=== PATIENT | female | born 1955 | race Caucasian/White ===

== ENCOUNTER 2017-11-05 18:06 | Emergency (ER) | payer BC, SELFPAY | END 2017-11-05 21:46 | disposition home or self-care (01) | PROVIDERS: Family Provider Nurse Practitioner Family; PCP Nurse Practitioner Family | DX: S00.461A Insect bite (nonvenomous) of right ear, initial encounter (principal); W57.XXXA Bitten or stung by nonvenomous insect and other nonvenomous arthropods, initial encounter | CPT/HCPCS: 99282 ==

== ENCOUNTER → 2018-07-20 09:00 | Outpatient (CLI) | payer BC, SELFPAY ==
[2018-07-20 10:21] LABS: Free T4, Direct Thyroxine 1.13 ng/dL (0.78-2.19)
[2018-07-20 10:34] LABS: Thyroid Stimulating Hormone 1.79 uIU/mL (0.47-4.68)
== END ==
PROVIDERS: Family Provider Internal Medicine Hematology & Oncology; PCP Nurse Practitioner Family; Visit Provider Nurse Practitioner Family
DX: E04.1 Nontoxic single thyroid nodule (principal)
CPT/HCPCS: 36415; 84439; 84443; 84481

== ENCOUNTER → 2018-11-16 10:41 | Outpatient (CLI) | payer BC, SELFPAY ==
[2018-11-16 13:12] LABS: Free T4, Direct Thyroxine 1.47 ng/dL (0.78-2.19)
[2018-11-16 13:25] LABS: Thyroid Stimulating Hormone 9.17 uIU/mL (0.47-4.68)
[2018-11-20 14:53] LABS: Parathyroid Hormone Int < 1 pg/mL (14-64)
== END ==
PROVIDERS: Family Provider Internal Medicine Hematology & Oncology; PCP Nurse Practitioner Family
DX: E04.1 Nontoxic single thyroid nodule (principal)
CPT/HCPCS: 36415; 83970; 84439; 84443; 84481

== ENCOUNTER 2019-09-14 12:44 | Emergency (ER) | payer BC, SELFPAY ==
[2019-09-14 12:51] VITALS: BP 107/60; PULSE 87; RESP 16; TEMP 37.6; O2SAT 100; BMI 23.6
--- NOTE | 2019-09-14 13:59 | DI.CT.S_ITS ---
PROCEDURE: CT SOFT TISSUE NECK W CON / INDICATIONS: severe pain, fever, difficulty swallowing, request per ENT TECHNIQUE: After the administration of intravenous contrast, 3.0 mm axial sections acquired from the sella to the aortic arch. Additional oblique axial 3.0 mm sections acquired through the pharynx. 3 mm thick coronal and sagittal reformats were generated. For radiation dose reduction, the following was used: automated exposure control. COMPARISON: None. FINDINGS: Image quality: There is mild motion artifact as well as streak artifact from patient's dental hardware limiting evaluation. Lymph nodes: There are mildly prominent bilateral cervical lymph nodes including level II nodes measuring up to 1 cm short axis. Findings are nonspecific but likely reactive. Vessels: Visualized vasculature appears patent. Neck spaces: There is mild mucosal thickening in the oropharynx and pyriform sinuses without a discrete mass. There is also mild enlargement of the tonsils bilaterally without a definite associated fluid collection, although evaluation is slightly limited by adjacent metallic streak artifact. There is also thickening of the uvula noted. No high-grade airway narrowing. The vocal cords, false vocal cords, epiglottis, vallecula, and tongue base all appear normal. Extramucosal spaces appear unremarkable. Glands: The parotid and submandibular glands appear normal. Thyroid gland is surgically absent. Miscellaneous: Visualized brain and orbits appear normal. Lung apices demonstrate mild dependent atelectasis. Superficial soft tissues appear normal. Bones: No suspicious bony lesions. Visualized sinuses and mastoids appear unremarkable. There is mild reversal of the cervical lordosis. Minimal anterolisthesis demonstrated at C3-C4. Moderate degenerative disc disease demonstrated in the mid and lower cervical spine. IMPRESSION: 1. Mild mucosal thickening in the oropharynx and pyriform sinuses as well as mild enlargement of the tonsils and uvula. The findings are likely infectious or inflammatory in etiology, without a discrete mass. No high-grade airway narrowing. No definite abscess identified. 2. Mildly prominent bilateral cervical lymph nodes are likely reactive. Dictated by: Hardy Hager M.D. on 09/14/2019 at 14:49 Approved by: Hardy Hager M.D. on 09/14/2019 at 14:55
[2019-09-14 14:00] VITALS: BP 132/78; PULSE 83; O2SAT 98
[2019-09-14] MEDS: SODIUM CHLORIDE 0.9% 1,000 ML 1000 ML IV (14:05)
[2019-09-14] MEDS: diphenhydrAMINE 50 MG/ML VIAL 25 MG IV (14:10)
[2019-09-14] MEDS: methylPREDNISolone 125 MG/2 ML VIAL IV (14:10)
--- NOTE | 2019-09-14 14:16 | ED.FEVER ---
HPI - Fever General Chief Complaint: Fever Stated Complaint: fever 102/104, headache, swollen glands Time Seen by Provider: 09/14/19 12:46 Source: patient Mode of arrival: Ambulatory Limitations: no limitations History of Present Illness HPI Narrative: 63-year-old female nonsmoker with history of CLL diagnosed in 2017 [address] at [facility] presents with a chief complaint of fever as high as 104F and a severe sore throat for the past few days. She denies any runny nose cough or shortness of breath. She has had no chest pain, nausea or vomiting. She denies any abdominal pain dysuria, frequency or urgency. Patient has had tender swollen glands and has difficulty swallowing. She was seen as an outpatient by her primary care provider and had negative swabs for flu and strep as well as a negative mono spot. She did have abnormal findings on her CBC including a reported WBC in the 2s. She does report feeling better today and has been on Keflex since yesterday. She was sent here by her primary care provider for further evaluation. She has spoken with her ear nose and throat physician from [place] whom requested she be sent here for advanced imaging of her throat and neck given her history of recurrent sialoadenitis and possible infection MD complaint: fever and weakness Onset (ago): day(s) Maximum Temperature: 104 F Temperature Source: oral Associated symptoms: chills, myalgias and sore throat Relieving factors: nothing Treatments prior to arrival fever: antibiotics Related Data Home Medications Medication Instructions Recorded Confirmed ascorbic acid (vitamin C) 500 mg PO QDAY #0 tab 05/05/16 cholecalciferol (vitamin D3) 1,000 unit PO Q DAY #0 05/05/16 [Vitamin D3] multivitamin [Multiple Vitamins] 1 tab PO QDAY #0 tab 05/05/16 calcium carbonate 1 tab PO Q DAY #0 05/26/16 Previous Rx's Medication Instructions Recorded epinephrine 0.3 mg IJ SEE INSTRUCTIONS #1 kit 03/31/16 Allergies Allergy/AdvReac Type Severity Reaction Status Date / Time iodine [IODINE] Allergy Intermediate hives Unverified 10/25/17 12:38 shellfish derived Allergy Intermediate swelling Unverified 10/25/17 12:38 [SHELLFISH DERIVED] venom-honey bee Allergy Intermediate swelling Unverified 10/25/17 12:38 [BEE VENOM (HONEY BEE)] Penicillins AdvReac Verified 09/14/19 13:01 Review of Systems Constitutional Constitutional: Reports chills, Reports fatigue, Reports fever(s), Denies frequent falls, Denies lethargy and Denies weakness Eyes Eyes: Denies change in vision, Denies eye discharge, Denies irritation and Denies loss of vision ENT Ears, Nose, Mouth, and Throat: Denies change in voice, Denies dizziness, Reports neck pain, Reports sore throat and Reports throat swelling Cardiovascular Cardiovascular: Denies chest pain, Denies irregular heart rhythm, Denies lightheadedness, Denies palpitations, Denies dyspnea, Denies dyspnea on exertion and Denies orthopnea Respiratory Respiratory: Denies cough, Denies dyspnea, Denies dyspnea on exertion and Denies wheezing Gastrointestinal Gastrointestinal: Denies abdominal pain, Denies change in bowel habits, Denies diarrhea, Denies nausea and Denies vomiting Genitourinary Genitourinary: Denies hematuria, Denies flank pain, Denies urinary incontinence and Denies urinary urgency Musculoskeletal Musculoskeletal: Denies back pain, Denies muscle weakness, Reports neck pain, Denies numbness and Denies tingling Integumentary/Breasts Skin/Breast: Denies pruritus, Denies erythema, Denies rash and Denies wounds Neurologic Neurologic: Denies behavioral changes, Denies confusion, Denies dizziness, Denies frequent falls, Denies loss of vision, Denies numbness, Denies tingling and Denies weakness Psychiatric Psychiatric: Denies anxiety, Denies behavioral changes, Denies confusion, Denies depression, Denies homicidal ideation and Denies suicidal ideation Endocrine Endocrine: Reports fatigue, Denies flushing and Denies palpitations Hematologic/Lymphatic Hematologic/Lymphatic: Denies easy bruising Allergic/Immunologic Allergic/Immunologic: Denies urticaria, Reports throat swelling and Denies wheezing Patient History Surgical History History of tonsillectomy Status post rotator cuff repair Family History Father Heart disease Social History Smoking Status: Never smoker Smoking Status: Never smoker Exam Narrative Exam Narrative: GENERAL: [63] year old patient appears stated age. Well-nourished, well-developed patient, in mild distress. HEAD: Atraumatic. Normocephalic. EYES: Pupils equal round and reactive. Extraocular motions intact. No scleral icterus. No injection or drainage. ENT: Nose without bleeding, purulent drainage. Posterior pharyngeal erythema. Airway patent. NECK: Trachea midline. Tender anterior lymphadenopathy CARDIOVASCULAR: Regular rate and rhythm without murmurs, gallops, or rubs. RESPIRATORY: Clear to auscultation. Breath sounds equal bilaterally. No wheezes, rales, or rhonchi. GASTROINTESTINAL: Abdomen soft, non-tender, nondistended. EXTREMITIES: No edema or joint tenderness. BACK: Nontender without deformity or crepitance. No flank tenderness. NEURO: AOx3. SKIN: No rash or erythema of visible areas Initial Vital Signs Initial Vital Signs: Vital Signs Temperature 99.6 F 09/14/19 12:51 Pulse Rate 87 09/14/19 12:51 Respiratory Rate 16 09/14/19 12:51 Blood Pressure 107/60 09/14/19 12:51 Pulse Oximetry 100 09/14/19 12:51 Course Course Course Narrative: Patient with high fever, sore throat an abnormally low white count sent by her ENT and primary care provider for evaluation. CT was soft tissue of neck demonstrates no abscess or significantly abnormal findings. Her labs though abnormal are improved. Patient has been given IV fluids and is feeling much better. I have contacted her primary care provider and we sure the opinion that she is safe for discharge and she will follow-up closely with her during the 1st part of the week. Patient given return precautions and encouraged to continue medications as planned while we await culture results Also called ENT at [facility]. No significant additions. DIscussion with patient regarding keeping on Keflex considering she feels a bit better, and waiting for cultures, or switching to something with broader coverage Orders Ordered: ED Orders 09/14/19 13:59 CT soft tissue neck w con Stat 09/14/19 14:20 Blood Culture Stat 09/14/19 14:28 Complete Blood Count AUTO DIFF Stat Comprehensive Metabolic Panel Stat Lactate (Lactic Acid) Stat Lipase Stat Partial Thromboplastin Time Stat Pathologist Review (for CBC) Stat Procalcitonin Stat Prothrombin Time INR Stat Discontinued Medications Acetaminophen (Tylenol) 975 mg PO NOW ONE Stop: 09/14/19 15:25 Last Admin: 09/14/19 15:47 Dose: 975 mg Documented by: SMICHEAU Diphenhydramine HCl (Benadryl) 25 mg IV NOW ONE Stop: 09/14/19 14:00 Last Admin: 09/14/19 14:10 Dose: 25 mg Documented by: ADRIENNE Sodium Chloride (Normal Saline 0.9%) 1,000 mls @ 1,000 mls/hr IV BOLUS ONE Stop: 09/14/19 14:03 Last Infusion: 09/14/19 15:23 Dose: 0 mls/hr Documented by: Admin: 09/14/19 14:05 Dose: 1,000 mls/hr Documented by: ADRIENNE Methylprednisolone (Solu-Medrol 125 Mg Vial) 125 mg IV NOW ONE Stop: 09/14/19 14:00 Last Admin: 09/14/19 14:10 Dose: 125 mg Documented by: ADRIENNE Vital Signs Vital signs: Vital Signs - 8 hr 09/14/19 12:51 09/14/19 14:00 09/14/19 15:16 Temperature 99.6 F 103.2 F H Pulse Rate 87 83 97 H Respiratory Rate 16 18 Blood Pressure 107/60 Blood Pressure [Right Arm] 132/78 131/60 Pulse Oximetry 100 98 96 09/14/19 16:18 09/14/19 17:00 09/14/19 18:00 Temperature 99.9 F H Pulse Rate 85 86 74 Respiratory Rate 16 Blood Pressure Blood Pressure [Right Arm] 124/60 117/55 L 110/63 Pulse Oximetry 95 93 100 MDM - Fever Lab Data Result diagrams: 09/14/19 14:28 09/14/19 14:28 Labs: Lab Results 09/14/19 09/14/19 09/14/19 Range/Units 14:28 14:28 14:28 WBC 3.5 L (4.5-11.0) X10^3/uL RBC 4.04 (4.0-5.2) X10^6/uL Hgb 12.7 (12.0-16.0) g/dL Hct 36.0 (36-46) % MCV 89.2 (80-100) fL MCH 31.5 (26-34) PG MCHC 35.3 (30-36) % RDW 13.7 (11.6-14.8) % Plt Count 108 L (150-400) X10^3/uL Neut % (Auto) Not Reportable Lymph % (Auto) Not Reportable [place] % (Auto) Not Reportable Eos % (Auto) Not Reportable Baso % (Auto) Not Reportable Lymph # (Auto) Not Reportable [place] # (Auto) Not Reportable Baso # (Auto) Not Reportable Total Counted 100 Seg Neutrophils % 2.0 L (38-70) % Lymphocytes % (Manual) 96.0 H (25-45) % Monocytes % (Manual) 2.0 (2-11) % Neutrophils # (Manual) 70 L (7134-4924) /uL RBC Morphology Normal morphology PT 29.1 H (10.1-12.7) SECONDS INR 2.5 H (0.9-1.3) APTT 43 H (26.4-36.2) SECONDS Sodium (137-145) mmol/L Potassium (3.4-5.1) mmol/L Chloride (98-107) mmol/L Carbon Dioxide (22-32) mmol/L BUN (7-17) mg/dL Creatinine (0.52-1.04) mg/dL Estimated GFR (>60) mL/min BUN/Creatinine Ratio (6-22) Glucose (80-110) mg/dL Lactate (0.7-2.1) mmol/L Calcium (8.4-10.2) mg/dL Total Bilirubin (0.2-1.3) mg/dL AST (14-36) IU/L ALT (<35) IU/L Alkaline Phosphatase (38-126) U/L Total Protein (6.3-8.2) g/dL Albumin (3.5-5.0) g/dL Globulin (1.7-4.1) g/dL Albumin/Globulin Ratio (1.0-2.8) Lipase (23-300) U/L Procalcitonin < 0.05 (<0.5) ng/mL 09/14/19 09/14/19 Range/Units 14:28 14:28 WBC (4.5-11.0) X10^3/uL RBC (4.0-5.2) X10^6/uL Hgb (12.0-16.0) g/dL Hct (36-46) % MCV (80-100) fL MCH (26-34) PG MCHC (30-36) % RDW (11.6-14.8) % Plt Count (150-400) X10^3/uL Neut % (Auto) Lymph % (Auto) [place] % (Auto) Eos % (Auto) Baso % (Auto) Lymph # (Auto) [place] # (Auto) Baso # (Auto) Total Counted Seg Neutrophils % (38-70) % Lymphocytes % (Manual) (25-45) % Monocytes % (Manual) (2-11) % Neutrophils # (Manual) (7400-3212) /uL RBC Morphology PT (10.1-12.7) SECONDS INR (0.9-1.3) APTT (26.4-36.2) SECONDS Sodium 137 (137-145) mmol/L Potassium 3.7 (3.4-5.1) mmol/L Chloride 100 (98-107) mmol/L Carbon Dioxide 28 (22-32) mmol/L BUN 12 (7-17) mg/dL Creatinine 0.60 (0.52-1.04) mg/dL Estimated GFR > 60.0 (>60) mL/min BUN/Creatinine Ratio 20.0 (6-22) Glucose 96 (80-110) mg/dL Lactate 1.1 (0.7-2.1) mmol/L Calcium 8.3 L (8.4-10.2) mg/dL Total Bilirubin 1.0 (0.2-1.3) mg/dL AST 19 (14-36) IU/L ALT 12 (<35) IU/L Alkaline Phosphatase 37 L (38-126) U/L Total Protein 7.4 (6.3-8.2) g/dL Albumin 4.3 (3.5-5.0) g/dL Globulin 3.1 (1.7-4.1) g/dL Albumin/Globulin Ratio 1.4 (1.0-2.8) Lipase 60 (23-300) U/L Procalcitonin (<0.5) ng/mL Urine Dip Bedside Urine Glucose Negative Bedside Urine Bilirubin - Negative Bedside Urine Ketone - Negative Urine Specific [place] 1.015 Bedside Urine Occult Blood - Negative Bedside Urine pH 6.0 Bedside Urine Protein +/- 15 Bedside Urine Urobilinogen - Negative Bedside Urine Nitrite - Negative Bedside Urine Leukocytes - Negative Esterase Imaging Data CT Soft Tissue: Radiologist's Impression: [address] [place] [id number] Scan Report Signed Patient: Alesia Alejo CMR#: [id number] : 6Acct:[id number] Age/Sex: 63 / FDate of Service: 09/14/19 Loc: ED Accession Number: [id number] Procedure: CT soft tissue neck w con Ordering Provider: Colby James D.O. PROCEDURE: CT SOFT TISSUE NECK W CON / INDICATIONS: severe pain, fever, difficulty swallowing, request per ENT TECHNIQUE: After the administration of intravenous contrast, 3.0 mm axial sections acquired from the sella to the aortic arch. Additional oblique axial 3.0 mm sections acquired through the pharynx. 3 mm thick coronal and sagittal reformats were generated. For radiation dose reduction, the following was used: automated exposure control. COMPARISON: None. FINDINGS: Image quality: There is mild motion artifact as well as streak artifact from patient's dental hardware limiting evaluation. Lymph nodes: There are mildly prominent bilateral cervical lymph nodes including level II nodes measuring up to 1 cm short axis. Findings are nonspecific but likely reactive. Vessels: Visualized vasculature appears patent. Neck spaces: There is mild mucosal thickening in the oropharynx and pyriform sinuses without a discrete mass. There is also mild enlargement of the tonsils bilaterally without a definite associated fluid collection, although evaluation is slightly limited by adjacent metallic streak artifact. There is also thickening of the uvula noted. No high-grade airway narrowing. The vocal cords, false vocal cords, epiglottis, vallecula, and tongue base all appear normal. Extramucosal spaces appear unremarkable. Glands: The parotid and submandibular glands appear normal. Thyroid gland is surgically absent. Miscellaneous: Visualized brain and orbits appear normal. Lung apices demonstrate mild dependent atelectasis. Superficial soft tissues appear normal. Bones: No suspicious bony lesions. Visualized sinuses and mastoids appear unremarkable. There is mild reversal of the cervical lordosis. Minimal anterolisthesis demonstrated at C3-C4. Moderate degenerative disc disease demonstrated in the mid and lower cervical spine. IMPRESSION: 1. Mild mucosal thickening in the oropharynx and pyriform sinuses as well as mild enlargement of the tonsils and uvula. The findings are likely infectious or inflammatory in etiology, without a discrete mass. No high-grade airway narrowing. No definite abscess identified. 2. Mildly prominent bilateral cervical lymph nodes are likely reactive. Dictated by: Hardy Hager M.D. on 09/14/2019 at 14:49 Approved by: Hardy Hager M.D. on 09/14/2019 at 14:55 Discharge Plan Departure Patient Disposition: Home Clinical Impression: Pharyngitis Qualifiers: Pharyngitis/tonsillitis etiology: unspecified etiology Qualified Code(s): J02.9 - Acute pharyngitis, unspecified Discharge Date/Time: 09/14/19 18:27 Instructions: DI for Pharyngitis/Tonsillopharyngitis -- Adult, DI for Fever (Symptom) -- Adult Activity Restrictions/Additional Instructions: *You have been diagnosed with [pharyngitis with fever] *What to do: * continue to take medications as directed *Follow up with your primary care provider in 2-3 days, call for an appointment. Let them know you were seen in the Emergency Department and that we ask that you be seen in follow up *Return to ER if you should have any new, worsening or concerning symptoms Prescriptions: No Action epinephrine 0.3 MG/0.3 ML auto-injector 0.3 mg IJ SEE INSTRUCTIONS Qty: 1 RF: 1 multivitamin [Multiple Vitamins] 1 EACH tablet 1 tab PO QDAY Qty: 0 RF: 0 ascorbic acid (vitamin C) 500 MG tablet 500 mg PO QDAY Qty: 0 RF: 0 cholecalciferol (vitamin D3) [Vitamin D3] 1,000 UNIT tablet,chewable 1,000 unit PO Q DAY Qty: 0 RF: 0 calcium carbonate 260 MG tablet 1 tab PO Q DAY Qty: 0 RF: 0 Referrals: Erin Pastor ARNP [Primary Care Provider] -
[2019-09-14 15:01] LABS: INR 2.5 (0.9-1.3); Prothrombin Time 29.1 SECONDS (10.1-12.7)
[2019-09-14 15:04] LABS: PTT Partial Thromboplastin Tim 43 SECONDS (26.4-36.2)
[2019-09-14 15:05] LABS: Alanine Aminotransferase 12 IU/L (<35); Albumin 4.3 g/dL (3.5-5.0); Albumin Globulin Ratio 1.4 (1.0-2.8); Alkaline Phosphatase 37 U/L (38-126); Aspartate Aminotransferase 19 IU/L (14-36); Blood Urea Nitrogen 12 mg/dL (7-17); Calcium 8.3 mg/dL (8.4-10.2); Carbon Dioxide 28 mmol/L (22-32); Chloride 100 mmol/L (98-107); Estimated Glomerular Filt Rate > 60.0 mL/min (>60); Globulin 3.1 g/dL (1.7-4.1); Glucose 96 mg/dL (80-110); HEMOLYSIS < 15 (0-50); Lipase 60 U/L (23-300); Potassium 3.7 mmol/L (3.4-5.1); Sodium 137 mmol/L (137-145); Total Protein 7.4 g/dL (6.3-8.2)
[2019-09-14 15:06] LABS: Lactate (Lactic Acid) 1.1 mmol/L (0.7-2.1)
[2019-09-14 15:10] LABS: Hemoglobin 12.7 g/dL (12.0-16.0); Mean Corpuscular HGB Conc 35.3 % (30-36); Mean Corpuscular Hemoglobin 31.5 PG (26-34); Mean Corpuscular Volume 89.2 fL (80-100); Platelet Count 108 X10^3/uL (150-400); Red Blood Cell Count 4.04 X10^6/uL (4.0-5.2); Red Cell Distribution Width 13.7 % (11.6-14.8); White Blood Cell Count 3.5 X10^3/uL (4.5-11.0)
[2019-09-14 15:16] VITALS: BP 131/60; PULSE 97; RESP 18; TEMP 39.6; O2SAT 96
[2019-09-14 15:16] LABS: Add Manual Diff / Slide Review YES
[2019-09-14] MEDS: ACETAMINOPHEN 325 MG TABLET 975 MG PO (15:47)
[2019-09-14 15:54] LABS: Neutrophils Absolute Manual 70 /uL (3000-5900); RBC Morphology Normal Morphology; Total Cells Counted 100
[2019-09-14 16:03] LABS: Procalcitonin < 0.05 ng/mL (<0.5)
[2019-09-14 16:18] VITALS: BP 124/60; PULSE 85; O2SAT 95
[2019-09-14 17:00] VITALS: BP 117/55; PULSE 86; O2SAT 93
[2019-09-14 18:00] VITALS: BP 110/63; PULSE 74; RESP 16; TEMP 37.7; O2SAT 100
== END 2019-09-14 18:27 | disposition home or self-care (01) ==
PROVIDERS: Emergency Provider Emergency Medicine; Family Provider Internal Medicine Hematology & Oncology; PCP Nurse Practitioner Family
DX: J02.9 Acute pharyngitis, unspecified (principal); R50.9 Fever, unspecified
CPT/HCPCS: 70491; 80053; 81003; 83605; 83690; 84145; 85025; 85610; 85730; 87040; 96361; 96374; 96375; 99284; J1200; J2930; Q9967

== ENCOUNTER → 2020-07-22 13:22 | Outpatient (CLI) | payer BC, SELFPAY | PROVIDERS: Family Provider Internal Medicine Hematology & Oncology; PCP Family Medicine; Referring Provider Family Medicine; Visit Provider Family Medicine | DX: Z78.0 Asymptomatic menopausal state (principal); E07.9 Disorder of thyroid, unspecified | CPT/HCPCS: 77080 ==

== ENCOUNTER → 2020-10-15 08:51 | Outpatient (CLI) | payer MEDICARE, OTHER, SELFPAY ==
[2020-10-15 10:01] LABS: Add Manual Diff / Slide Review YES; Alanine Aminotransferase 13 IU/L (<35); Albumin 4.5 g/dL (3.5-5.0); Alkaline Phosphatase 38 U/L (38-126); Aspartate Aminotransferase 22 IU/L (14-36); Bilirubin Total 0.5 mg/dL (0.2-1.3); Blood Urea Nitrogen 18 mg/dL (7-17); Calcium 9.2 mg/dL (8.4-10.2); Carbon Dioxide 32 mmol/L (22-32); Chloride 99 mmol/L (98-107); Estimated Glomerular Filt Rate > 60.0 mL/min (>60); Globulin 2.3 g/dL (1.7-4.1); Glucose 79 mg/dL (80-110); HEMOLYSIS < 15 (0-50); Hematocrit 38.6 % (36-46); Hemoglobin 13.6 g/dL (12.0-16.0); Lactate Dehydrogenase 536 U/L (313-618); Mean Corpuscular HGB Conc 35.2 % (30-36); Mean Corpuscular Hemoglobin 30.6 PG (26-34); Platelet Count 100 X10^3/uL (150-400); Potassium 3.8 mmol/L (3.4-5.1); Red Blood Cell Count 4.43 X10^6/uL (4.0-5.2); Red Cell Distribution Width 13.4 % (11.6-14.8); Sodium 138 mmol/L (137-145); Total Protein 6.8 g/dL (6.3-8.2); White Blood Cell Count 10.7 X10^3/uL (4.5-11.0)
[2020-10-15 10:23] LABS: Neutrophils Absolute Manual 3852 /uL (3000-5900); RBC Morphology Normal Morphology; Total Cells Counted 100
== END ==
PROVIDERS: Family Provider Internal Medicine Hematology & Oncology; Referring Provider Internal Medicine Hematology & Oncology; Visit Provider Internal Medicine Hematology & Oncology
DX: C91.10 Chronic lymphocytic leukemia of B-cell type not having achieved remission (principal)
CPT/HCPCS: 36415; 80053; 83615; 85007; 85025

== ENCOUNTER → 2020-11-20 12:49 | Outpatient (CLI) | payer MEDICARE, OTHER, SELFPAY ==
[2020-11-20 14:07] LABS: Alanine Aminotransferase 13 IU/L (<35); Albumin 4.1 g/dL (3.5-5.0); Albumin Globulin Ratio 1.6 (1.0-2.8); Alkaline Phosphatase 47 U/L (38-126); Aspartate Aminotransferase 23 IU/L (14-36); BUN Creatinine Ratio 26.4 (6-22); Bilirubin Total 0.4 mg/dL (0.2-1.3); Blood Urea Nitrogen 19 mg/dL (7-17); Calcium 9.1 mg/dL (8.4-10.2); Carbon Dioxide 31 mmol/L (22-32); Chloride 99 mmol/L (98-107); Estimated Glomerular Filt Rate > 60.0 mL/min (>60); Globulin 2.5 g/dL (1.7-4.1); Glucose 85 mg/dL (80-110); HEMOLYSIS < 15 (0-50); Potassium 4.2 mmol/L (3.4-5.1); Sodium 138 mmol/L (137-145); Total Protein 6.6 g/dL (6.3-8.2)
[2020-11-20 14:22] LABS: Free T4, Direct Thyroxine 1.86 ng/dL (0.78-2.19)
[2020-11-20 14:36] LABS: Thyroid Stimulating Hormone 0.396 uIU/mL (0.47-4.68)
[2020-11-21 19:28] LABS: Anti Thyroglobulin Antibody <1.0 IU/mL (0.0-0.9)
[2020-11-25 10:35] LABS: Thyroglobulin Level <2.0 ng/mL (.)
== END ==
PROVIDERS: Family Provider Internal Medicine Hematology & Oncology; PCP Family Medicine; Referring Provider Internal Medicine Endocrinology, Diabetes & Metabolism; Visit Provider Internal Medicine Endocrinology, Diabetes & Metabolism
DX: C73 Malignant neoplasm of thyroid gland (principal); E89.0 Postprocedural hypothyroidism; E89.2 Postprocedural hypoparathyroidism
CPT/HCPCS: 36415; 80053; 84432; 84439; 84443; 86800

== ENCOUNTER → 2020-11-26 13:22 | Outpatient (CLI) | payer MEDICARE, OTHER, SELFPAY ==
[2020-11-26 20:56] LABS: Add Manual Diff / Slide Review YES; Hematocrit 38.3 % (36-46); Hemoglobin 13.1 g/dL (12.0-16.0); Mean Corpuscular HGB Conc 34.3 % (30-36); Mean Corpuscular Hemoglobin 30.1 PG (26-34); Mean Corpuscular Volume 87.7 fL (80-100); Platelet Count 127 X10^3/uL (150-400); Red Blood Cell Count 4.36 X10^6/uL (4.0-5.2); Red Cell Distribution Width 13.4 % (11.6-14.8)
[2020-11-26 21:00] LABS: Neutrophils Absolute Manual 0 /uL (3000-5900); Total Cells Counted 100
[2020-11-26 21:03] LABS: Influenza A - CEPHEID Flu A NEGATIVE (NEGATIVE); Influenza B - CEPHEID Flu B NEGATIVE (NEGATIVE)
[2020-11-26 21:04] LABS: Platelet Estimate Decr; RBC Morphology Normal Morphology
[2020-11-26 21:22] LABS: COVID19 - ORCAS (NP or Nasal) Negative (Negative)
== END ==
PROVIDERS: Family Provider Internal Medicine Hematology & Oncology; PCP Family Medicine; Visit Provider Family Medicine
DX: R50.9 Fever, unspecified (principal); Z20.822 Contact with and (suspected) exposure to COVID-19
CPT/HCPCS: 85007; 85025; 87086; 87502; U0003

== ENCOUNTER 2020-12-15 18:39 | Emergency (ER) | payer MEDICARE, OTHER, SELFPAY ==
[2020-12-15 18:40] VITALS: BP 128/64; PULSE 102; RESP 18; TEMP 38.4; O2SAT 99; BMI 24.9
--- NOTE | 2020-12-15 18:55 | DI.RAD.S_ITS ---
PROCEDURE: XR CHEST 1V INDICATIONS: fall, trauma, preop TECHNIQUE: One view of the chest was acquired. COMPARISON: None. FINDINGS: Surgical changes and devices: None. Lungs and pleura: There is a small left pleural effusion. Associated linear opacities in the left lung base likely represent compressive atelectasis. No evidence of pneumothorax. Mediastinum: Mediastinal contours appear normal. Heart size is normal. Bones and chest wall: No suspicious bony lesions. No displaced fractures identified. Overlying soft tissues appear unremarkable. IMPRESSION: 1. Small left pleural effusion with likely associated compressive atelectasis in the left lung base. Dictated by: Hardy Hager M.D. on 12/15/2020 at 19:28 Approved by: Hardy Hager M.D. on 12/15/2020 at 19:29
--- NOTE | 2020-12-15 19:28 | ED_ITS ---
HPI - Sepsis General Chief Complaint: Fever Mode of arrival: Ambulatory Source: patient Limitations: no limitations Evaluation Sepsis Screen: Possible Sepsis Risk Sepsis Infection Criteria Present: Suspected New Infection Associated Symptoms: fever Narrative: 65-year-old female nonsmoker with history of CLL presents at the request of her primary care provider for evaluation. She states she has had a low-grade temp at home and has increasing pain and swelling in her left groin. She recently had an extended hospitalization at [facility] ([place], [place]) for neutropenic fever and was just discharged a few days ago. She is not on antibiotics at home and had been doing well until she started having increasing size swelling in her left groin. She states that she had been febrile upon discharge and also had painful swollen left inguinal lymph nodes for the duration of her visit at [facility] ([place], [place]) and also upon discharge. She denies other symptoms such as dizziness, weakness or lightheadedness. She has no runny nose, sore throat or cough. Her hospitalization was 15 days long and involved very thorough evaluations by Hematology, Oncology and Infectious Disease. In the end it was thought that her neutropenia was likely due to a medication reaction with turbinate find that she had been using for toenail fungus which had actually happened to her once before a few years ago. Her absolute neutrophil count was quite low and her evaluation was extensive including multiple CT scans with IV contrast, viral panels, stay bone marrow biopsies, transthoracic echocardiogram, toxoplasma, ultrasounds etc.. She had no definitive diagnosis but had been on antibiotics for possible cellulitis. She did receive G-CSF Review of Systems Constitutional Constitutional: Denies chills, Denies fatigue, Reports fever(s), Denies frequent falls, Denies lethargy and Denies weakness Eyes Eyes: Denies change in vision, Denies eye discharge, Denies irritation and Denies loss of vision ENT Ears, Nose, Mouth, and Throat: Denies change in voice, Denies dizziness, Denies neck pain, Denies sore throat and Denies throat swelling Cardiovascular Cardiovascular: Denies chest pain, Denies irregular heart rhythm, Denies lightheadedness, Denies palpitations, Denies dyspnea, Denies dyspnea on exertion and Denies orthopnea Respiratory Respiratory: Denies cough, Denies dyspnea, Denies dyspnea on exertion and Denies wheezing Gastrointestinal Gastrointestinal: Denies abdominal pain, Denies change in bowel habits, Denies diarrhea, Denies nausea and Denies vomiting Genitourinary Comments: groin pain Musculoskeletal Musculoskeletal: Denies neck pain and Denies numbness Integumentary/Breasts Skin/Breast: Denies pruritus, Denies erythema, Denies rash and Denies wounds Neurologic Neurologic: Denies behavioral changes, Denies confusion, Denies dizziness, Denies frequent falls, Denies loss of vision, Denies numbness and Denies weakness Psychiatric Psychiatric: Denies anxiety, Denies behavioral changes, Denies confusion, Denies depression, Denies homicidal ideation and Denies suicidal ideation Endocrine Endocrine: Denies fatigue, Denies flushing and Denies palpitations Hematologic/Lymphatic Hematologic/Lymphatic: Denies easy bruising Allergic/Immunologic Allergic/Immunologic: Denies urticaria, Denies throat swelling and Denies wheezing Patient History Medical History Acute embolism and thrombosis of left internal jugular vein 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 Calcinosis 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, auricular septal (~09/1965) Family history of malignant neoplasm of digestive organs Family history of malignant neoplasm of ovary Fever Hallux valgus (acquired) Hepatitis C (~1997) History of basal cell carcinoma Hypocalcemia Hypothyroidism (~2018) Malignant neoplasm of thyroid gland Measles Mumps Onychomycosis Osteoarthritis Other specified abnormal findings of blood chemistry Personal history of other infectious and parasitic diseases Polyp of colon Postprocedural hypothyroidism Retinal detachment Rheumatoid arthritis Rubella Sepsis due to Streptococcus, group B Thrombocytopenia, unspecified Thyroid nodule Surgical History Anesthesia H/O detached retina repair (~2003) History of eye surgery (~10/2020) History of heart surgery (~09/1965) History of thyroidectomy (~10/2018) History of tonsillectomy Status post rotator cuff repair (~07/2015) Family History Father Heart disease Cancer Stroke Mother Cancer Sister Breast cancer Grandmother Cancer Grandfather Stroke Grandfather Parkinson's disease Grandmother Cancer Social History Smoking Status: Never smoker alcohol intake: current (1 drink for dinner ) substance use type: marijuana (1 joint per week for sleep ) Smoking Status: Never smoker Substance Use Type: does not use Exam Narrative Exam Narrative: GENERAL: [65] year old patient appears stated age. Well- nourished, well-developed patient, in mild distress. HEAD: Atraumatic. Normocephalic. EYES: Pupils equal round and reactive. Extraocular motions intact. No scleral icterus. No injection or drainage. ENT: Nose without bleeding, purulent drainage. Throat without erythema, tonsill ar hypertrophy or exudate. Airway patent. NECK: Trachea midline. Non tender CARDIOVASCULAR: Regular rate and rhythm without murmurs, gallops, or rubs. RESPIRATORY: Clear to auscultation. Breath sounds equal bilaterally. No wheezes, rales, or rhonchi. GASTROINTESTINAL: Abdomen soft, non-tender, nondistended. EXTREMITIES: Tender nodes in left groin. No erythema, induration, fluctuance, or lymphangitis. No edema or joint tenderness. BACK: Nontender without deformity or crepitance. No flank tenderness. NEURO: AOx3. SKIN: No rash or erythema of visible areas Initial Vital Signs Initial Vital Signs: Vital Signs Temperature 101.2 F H 12/15/20 18:40 Pulse Rate 102 H 12/15/20 18:40 Respiratory Rate 18 12/15/20 18:40 Blood Pressure 128/64 12/15/20 18:40 Pulse Oximetry 99 12/15/20 18:40 Course Orders Ordered: ED Orders 12/15/20 18:55 XR chest 1V Stat 12/15/20 19:27 Complete Blood Count AUTO DIFF Stat Comprehensive Metabolic Panel Stat Lactate (Lactic Acid) Stat Pathologist Review (for CBC) Stat Procalcitonin Stat 12/15/20 19:45 D Dimer Stat 12/15/20 19:56 Blood Culture Stat 12/15/20 20:38 US periph venous low extrem lt Stat Discontinued Medications Sodium Chloride (Normal Saline 0.9%) 1,000 mls @ 125 mls/hr IV CONT TONY Last Admin: 12/15/20 21:54 Dose: Not Given Documented by: ENZO Ketorolac Tromethamine (Ketorolac 30 Mg/Ml Vial) 15 mg IV NOW ONE Stop: 12/15/20 20:06 Last Admin: 12/15/20 20:48 Dose: 15 mg Documented by: ENZO Reevaluation(s) Reevaluation #1: Patient felt near complete resolution of symptoms after above- stated therapies. Consultations Consultation #1: Upon receipt of diagnostics, and discharge summary I placed a call to Infectious Disease at [facility] ([place], [place]). We had a lengthy discussion regarding the prior hospitalization, as well as the patient's history and physical for this visit. Patient is clearly no longer neutropenic and still has no obvious source of her fever. Given the multiple extended recent evaluations the recommendation, especially given how well the patient feels is to go home, no new antibiotics, await pending cultures and follow-up as previously planned. Vital Signs Vital signs: Vital Signs - 8 hr 12/15/20 18:40 12/15/20 19:30 12/15/20 20:00 Temperature 101.2 F H Pulse Rate 102 H 99 H 89 Respiratory Rate 18 Blood Pressure 128/64 120/61 Pulse Oximetry 99 96 96 12/15/20 20:30 12/16/20 00:08 Temperature Pulse Rate 89 84 Respiratory Rate Blood Pressure 116/63 Pulse Oximetry 97 98 MDM - Sepsis Lab Data Result diagrams: 12/15/20 19:27 12/15/20 19:27 Labs: Lab Results 12/15/20 12/15/20 12/15/20 Range/Units 19:27 19:27 19:27 WBC 18.2 H (4.5-11.0) X10^3/uL RBC 3.37 L (4.0-5.2) X10^6/uL Hgb 10.2 L (12.0-16.0) g/dL Hct 29.0 L (36-46) % MCV 86.0 (80-100) fL MCH 30.4 (26-34) PG MCHC 35.3 (30-36) % RDW 13.0 (11.6-14.8) % Plt Count 385 (150-400) X10^3/uL Neut % (Auto) Not Reportable Lymph % (Auto) Not Reportable [place] % (Auto) Not Reportable Eos % (Auto) Not Reportable Baso % (Auto) Not Reportable Lymph # (Auto) Not Reportable [place] # (Auto) Not Reportable Baso # (Auto) Not Reportable Total Counted 100 Seg Neutrophils % 22.0 L (38-70) % Band Neutrophils % 8.0 H (3-7) % Lymphocytes % (Manual) 40.0 (25-45) % Atypical Lymphs % 21.0 H ( - 0) % Monocytes % (Manual) 8.0 (2-11) % Metamyelocytes % 1.0 H (-0) % Neutrophils # (Manual) 5460 (4946-8523) /uL WBC Morphology Comment Note RBC Morphology Normal morphology D-Dimer (<230) ng/mL Sodium (137-145) mmol/L Potassium (3.4-5.1) mmol/L Chloride (98-107) mmol/L Carbon Dioxide (22-32) mmol/L BUN (7-17) mg/dL Creatinine (0.52-1.04) mg/dL Estimated GFR (>60) mL/min BUN/Creatinine Ratio (6-22) Glucose (80-110) mg/dL Lactate 1.1 (0.7-2.1) mmol/L Calcium (8.4-10.2) mg/dL Total Bilirubin (0.2-1.3) mg/dL AST (14-36) IU/L ALT (<35) IU/L Alkaline Phosphatase (38-126) U/L Total Protein (6.3-8.2) g/dL Albumin (3.5-5.0) g/dL Globulin (1.7-4.1) g/dL Albumin/Globulin Ratio (1.0-2.8) Procalcitonin 0.06 (<0.5) ng/mL 12/15/20 12/15/20 Range/Units 19:27 19:45 WBC (4.5-11.0) X10^3/uL RBC (4.0-5.2) X10^6/uL Hgb (12.0-16.0) g/dL Hct (36-46) % MCV (80-100) fL MCH (26-34) PG MCHC (30-36) % RDW (11.6-14.8) % Plt Count (150-400) X10^3/uL Neut % (Auto) Lymph % (Auto) [place] % (Auto) Eos % (Auto) Baso % (Auto) Lymph # (Auto) [place] # (Auto) Baso # (Auto) Total Counted Seg Neutrophils % (38-70) % Band Neutrophils % (3-7) % Lymphocytes % (Manual) (25-45) % Atypical Lymphs % ( - 0) % Monocytes % (Manual) (2-11) % Metamyelocytes % (-0) % Neutrophils # (Manual) ([id number]) /uL WBC Morphology Comment RBC Morphology D-Dimer 407 H (<230) ng/mL Sodium 134 L (137-145) mmol/L Potassium 4.1 (3.4-5.1) mmol/L Chloride 98 (98-107) mmol/L Carbon Dioxide 29 (22-32) mmol/L BUN 14 (7-17) mg/dL Creatinine 0.52 (0.52-1.04) mg/dL Estimated GFR > 60.0 (>60) mL/min BUN/Creatinine Ratio 26.9 H (6-22) Glucose 131 H (80-110) mg/dL Lactate (0.7-2.1) mmol/L Calcium 8.8 (8.4-10.2) mg/dL Total Bilirubin 0.4 (0.2-1.3) mg/dL AST 32 (14-36) IU/L ALT 20 (<35) IU/L Alkaline Phosphatase 76 (38-126) U/L Total Protein 6.7 (6.3-8.2) g/dL Albumin 3.3 L (3.5-5.0) g/dL Globulin 3.4 (1.7-4.1) g/dL Albumin/Globulin Ratio 1.0 (1.0-2.8) Procalcitonin (<0.5) ng/mL Urine Dip Bedside Urine Glucose Negative Bedside Urine Bilirubin - Negative Bedside Urine Ketone - Negative Urine Specific [place] 1.020 Bedside Urine Occult Blood - Negative Bedside Urine pH 6.0 Bedside Urine Protein - Negative Bedside Urine Urobilinogen - Negative Bedside Urine Nitrite - Negative Bedside Urine Leukocytes - Negative Esterase MDM Narrative Medical decision making narrative: Patient with fever and slight increase in the size of her tender nodes in left groin. She has mount tingling a sufficient immune response with elevated white blood cells, id suggest this could be a G- CSF response. Otherwise very reassuring physical exam and lab evaluation. Repeat ultrasound of left lower extremity shows no DVT or obvious fluid collection. I had an extensive discussion with the patient and after my talk with Infectious Disease. We talked about the potential of putting her on antibiotics to cover possible cellulitis but given lack of redness, swelling, warmth or tenderness of her lower extremity we agree that holding off until cultures come back is appropriate. Patient given extensive return precautions which is understood as evidenced by her ability to recite it back. Discharge Plan Departure Patient Disposition: Home Clinical Impression: Inguinal adenopathy Instructions: DI for Lymphadenopathy Activity Restrictions/Additional Instructions: *You have been diagnosed with [fever and painful lymph node in left groin. Your workup today is very reassuring, as we discussed we will hold off on giving any antibiotics and will await the cultures to return.] *What to do: *Please continue to take your regular medications as directed. [ x] New medication prescriptions sent to your pharmacy: [[facility]] [ ] New medication written as a paper prescription [ ] No new medications given *Please follow up with your primary care provider in 2-3 days, call for an appointment. Let them know you were seen in the Emergency Department and that we ask that you be seen in follow up. We will electronically transmit a record of today's note if your PCP is in our system *If you do not have a primary care provider please contact the [facility] Resource line at [phone]. They will ask some questions about your medical history and help get you set up with a doctor in the community. *Return to Emergency Department if you should have any new, worsening or concerning symptoms, such as [fever greater than 101 F, shaking chills, w orsening pain, persistent vomiting or other bothersome symptoms] Prescriptions: New ketorolac 10 mg tablet 10 mg PO Q6H PRN (Reason: pain) Qty: 14 RF: 0 No Action cholecalciferol (vitamin D3) [Vitamin D3] 1,000 UNIT tablet,chewable 1,000 unit PO Q DAY Qty: 0 RF: 0 calcium carbonate 260 MG tablet 1 tab PO Q DAY Qty: 0 RF: 0 ascorbic acid (vitamin C) 500 mg tablet 500 mg PO TID Qty: 0 RF: 0 levothyroxine 150 mcg tablet 150 mcg PO DAILY RF: 0 epinephrine 0.3 mg/0.3 mL auto-injector 0.3 mg SUBCUT SEE INSTRUCTIONS Qty: 1 RF: 1 glucosamine HCl PO RF: 0 phytonadione (vitamin K1) PO RF: 0 calcitriol 0.25 mcg capsule 0.25 mcg PO RF: 0 terbinafine HCl 250 mg tablet 250 mg PO DAILY Qty: 90 RF: 1 Referrals: Tyrone Vega, [Primary Care Provider] -
[2020-12-15 19:30] VITALS: BP 120/61; PULSE 99; O2SAT 96
[2020-12-15 19:34] LABS: Hemoglobin 10.2 g/dL (12.0-16.0); Mean Corpuscular HGB Conc 35.3 % (30-36); Mean Corpuscular Hemoglobin 30.4 PG (26-34); Platelet Count 385 X10^3/uL (150-400); Red Blood Cell Count 3.37 X10^6/uL (4.0-5.2); White Blood Cell Count 18.2 X10^3/uL (4.5-11.0)
--- NOTE | 2020-12-15 19:36 | PC.NURSE ---
Pt refusing respiratory panel
[2020-12-15 19:48] LABS: Alanine Aminotransferase 20 IU/L (<35); Albumin 3.3 g/dL (3.5-5.0); Alkaline Phosphatase 76 U/L (38-126); Aspartate Aminotransferase 32 IU/L (14-36); BUN Creatinine Ratio 26.9 (6-22); Bilirubin Total 0.4 mg/dL (0.2-1.3); Blood Urea Nitrogen 14 mg/dL (7-17); Calcium 8.8 mg/dL (8.4-10.2); Carbon Dioxide 29 mmol/L (22-32); Chloride 98 mmol/L (98-107); Estimated Glomerular Filt Rate > 60.0 mL/min (>60); Globulin 3.4 g/dL (1.7-4.1); Glucose 131 mg/dL (80-110); HEMOLYSIS < 15 (0-50); Potassium 4.1 mmol/L (3.4-5.1); Sodium 134 mmol/L (137-145); Total Protein 6.7 g/dL (6.3-8.2)
[2020-12-15 19:49] LABS: Lactate (Lactic Acid) 1.1 mmol/L (0.7-2.1)
[2020-12-15 19:57] LABS: Add Manual Diff / Slide Review YES
[2020-12-15 20:00] VITALS: PULSE 89; O2SAT 96
[2020-12-15 20:00] LABS: D Dimer 407 ng/mL (<230)
[2020-12-15 20:04] LABS: Neutrophils Absolute Manual 5460 /uL (3000-5900); Total Cells Counted 100
[2020-12-15 20:05] LABS: Procalcitonin 0.06 ng/mL (<0.5); RBC Morphology Normal Morphology
[2020-12-15 20:09] LABS: WBC Morphology Comment NOTE
[2020-12-15 20:30] VITALS: PULSE 89; O2SAT 97
--- NOTE | 2020-12-15 20:38 | DI.US.S_ITS ---
PROCEDURE: US PERIPH VENOUS LOW EXTREM LT INDICATIONS: GROIN PAIN AND RECENT HOSPITALIZATION TECHNIQUE: Real-time imaging, as well as color and pulse Doppler interrogation, were performed of the lower extremity deep veins from the inguinal ligament to the popliteal fossa. COMPARISON: None. FINDINGS: The common femoral, femoral and popliteal veins are normally compressible, and free of intraluminal thrombus. Color and pulse Doppler demonstrate normal phasic intraluminal flow. There is normal augmentation response to distal compression maneuver. Subcutaneous edema is demonstrated in the left inguinal region in the area of clinical concern. No discrete loculated fluid collection to suggest an abscess. There are mildly enlarged left inguinal and medial thigh lymph nodes measuring up to 0.8 cm in short axis. IMPRESSION: 1. No evidence of deep venous thrombosis in the left lower extremity. 2. Subcutaneous edema in the left inguinal region is nonspecific but may reflect cellulitis. No discrete abscess visualized. 3. Mildly prominent left inguinal lymph nodes are likely reactive. Dictated by: Hardy Hager M.D. on 12/15/2020 at 22:35 Approved by: Hardy Hager M.D. on 12/15/2020 at 22:37
[2020-12-15] MEDS: KETOROLAC 30 MG/ML VIAL 15 MG IV (20:48)
[2020-12-16 00:08] VITALS: BP 116/63; PULSE 84; O2SAT 98
== END 2020-12-16 00:17 | disposition home or self-care (01) ==
PROVIDERS: Emergency Provider Emergency Medicine; Family Provider Internal Medicine Hematology & Oncology; PCP Family Medicine
DX: R59.0 Localized enlarged lymph nodes (principal); R10.9 Unspecified abdominal pain
CPT/HCPCS: 36415; 71045; 80053; 81003; 83605; 84145; 85007; 85025; 85379; 87040; 93971; 96374; 99284; J1885

== ENCOUNTER → 2021-03-18 08:39 | Outpatient (CLI) | payer MEDICARE, OTHER, SELFPAY ==
[2021-03-18 19:18] LABS: Free T4, Direct Thyroxine 1.84 ng/dL (0.78-2.19)
[2021-03-18 19:20] LABS: Progesterone, Total 0.49 ng/mL
[2021-03-18 19:32] LABS: Thyroid Stimulating Hormone 0.235 uIU/mL (0.47-4.68)
[2021-03-20 20:06] LABS: Thyroglobulin Antibodies < 1.0 IU/mL (0.0-0.9)
== END ==
PROVIDERS: Family Provider Internal Medicine Hematology & Oncology; PCP Family Medicine; Referring Provider Internal Medicine Endocrinology, Diabetes & Metabolism; Visit Provider Internal Medicine Endocrinology, Diabetes & Metabolism
DX: E89.2 Postprocedural hypoparathyroidism (principal); E89.0 Postprocedural hypothyroidism; C73 Malignant neoplasm of thyroid gland; L65.9 Nonscarring hair loss, unspecified
CPT/HCPCS: 84144; 84432; 84439; 84443; 86800

== ENCOUNTER → 2021-04-20 09:04 | Outpatient (CLI) | payer MEDICARE, OTHER, SELFPAY ==
[2021-04-20 19:36] LABS: Alanine Aminotransferase 12 IU/L (<35); Albumin 4.2 g/dL (3.5-5.0); Albumin Globulin Ratio 1.7 (1.0-2.8); Alkaline Phosphatase 48 U/L (38-126); Aspartate Aminotransferase 22 IU/L (14-36); BUN Creatinine Ratio 25.4 (6-22); Bilirubin Total 0.9 mg/dL (0.2-1.3); Blood Urea Nitrogen 18 mg/dL (7-17); Calcium 8.9 mg/dL (8.4-10.2); Carbon Dioxide 36 mmol/L (22-32); Chloride 100 mmol/L (98-107); Estimated Glomerular Filt Rate > 60.0 mL/min (>60); Globulin 2.5 g/dL (1.7-4.1); Glucose 113 mg/dL (80-110); HEMOLYSIS < 15 (0-50); Potassium 4.1 mmol/L (3.4-5.1); Sodium 138 mmol/L (137-145); Total Protein 6.7 g/dL (6.3-8.2)
[2021-04-20 19:43] LABS: Hematocrit 40.1 % (36-46); Hemoglobin 13.8 g/dL (12.0-16.0); Mean Corpuscular HGB Conc 34.4 % (30-36); Mean Corpuscular Hemoglobin 29.8 PG (26-34); Mean Corpuscular Volume 86.6 fL (80-100); Platelet Count 123 X10^3/uL (150-400); Red Blood Cell Count 4.63 X10^6/uL (4.0-5.2); Red Cell Distribution Width 13.3 % (11.6-14.8); White Blood Cell Count 8.3 X10^3/uL (4.5-11.0)
[2021-04-20 19:45] LABS: Add Manual Diff / Slide Review YES
[2021-04-20 21:00] LABS: Neutrophils Absolute Manual 2241 /uL (3000-5900); Total Cells Counted 100
[2021-04-20 21:01] LABS: RBC Morphology Normal Morphology
[2021-04-20 21:02] LABS: Reactive Lymphocytes 1+
[2021-04-20 21:03] LABS: Smudge Cells 1+
[2021-04-24 22:36] LABS: LDH 262 IU/L (119-226)
== END ==
PROVIDERS: Family Provider Internal Medicine Hematology & Oncology; PCP Family Medicine; Visit Provider Internal Medicine Hematology & Oncology
DX: C91.10 Chronic lymphocytic leukemia of B-cell type not having achieved remission (principal)
CPT/HCPCS: 80053; 83615; 83625; 85007; 85025

== ENCOUNTER → 2021-07-20 11:28 | Outpatient (CLI) | payer MEDICARE, OTHER, SELFPAY ==
--- NOTE | 2021-07-20 11:30 | DI.MRI.S_ITS ---
PROCEDURE: MR LUMBAR SPINE WO CON INDICATIONS: LUMBAR PAIN TECHNIQUE: Noncontrast sagittal T1 spin echo and T2 fast echo, sagittal STIR, axial T1 and T2 fast spin echo through the lumbar spine. In cases with scoliosis, additional coronal T2 fast spin echo may be performed. COMPARISON: , CT, CHEST/ABD/PEL WITHOUT CONTRAST, 05/12/2016, 11:52. [facility] [place], [place], XR LUMBAR SPINE WITH OBLIQUES PLUS FLEXION EXTENSION, 06/29/2021, 10:19. FINDINGS: Image quality: This examination is limited by involuntary motion artifact. Alignment and Curvature: There is moderate levoconvex scoliosis. Minimal retrolisthesis is seen at the L2-L3 level. Bone Marrow: Marrow is of normal overall signal. No acute vertebral body compression fractures. Spinal Cord: Conus medullaris terminates at the L1 level. Visualized cord demonstrates normal signal and size. Paraspinous Soft Tissues: No paravertebral masses. Moderate lower thoracic spine degenerative changes are seen. T12-L1: Moderate loss of disc height is seen. Loss of disc signal is seen. Mild to moderate disc bulge is seen. Bridging endplate osteophytes are seen on the left. No neural foraminal or central canal narrowing can be seen. L1-L2: There is at least moderate loss of disc height and disc signal seen on the right side. Moderate disc bulge is seen, with bridging endplate osteophytes on the right. There is a superimposed central disc protrusion. There is moderate right-sided and [id number] left-sided neural foraminal narrowing seen. Mild to moderate central canal narrowing is seen. L2-L3: There is at least moderate loss of disc height and disc signal seen on the right side. Moderate disc bulge is seen, which is eccentric to the right. Bridging endplate osteophytes are seen on the right side, which are best demonstrated on series 2, image 4. There is a superimposed central disc protrusion. Mild to moderate facet hypertrophy is seen. There is moderate right-sided and [id number] left-sided neural foraminal narrowing seen. Moderate central canal narrowing is seen. L3-L4: Moderate to severe loss of disc height and disc signal can be seen, which is worst on the right side. Bridging endplate osteophytes are seen on the right side. Moderate facet joint hypertrophy is seen. Associated hypertrophy of the ligamentum flavum can be seen. Moderate bilateral neural foraminal narrowing is seen. Moderate central canal narrowing is seen. L4-L5: Moderate to severe loss of disc height and disc signal can be seen. At least moderate disc bulge is seen, which is eccentric to the left side. There is a superimposed central disc protrusion. Moderate facet joint hypertrophy is seen. There is moderate to severe bilateral neural foraminal narrowing seen, left worse than right. There is a degree of compression seen upon the exiting nerve roots. Moderate central canal narrowing is seen. L5-S1: There is at least moderate loss of disc height and disc signal seen. Moderate disc bulge is seen, which is eccentric to the left side. Bridging endplate osteophytes are seen on left, which are best demonstrated on series 2, image 4. At least moderate left-sided and moderate right-sided facet hypertrophy can be seen. There is moderate to severe left-sided neural foraminal narrowing seen, with a degree of compression upon the exiting left L5 nerve root. Mild to moderate right-sided neural foraminal narrowing is seen. Mild central canal narrowing is seen. IMPRESSION: Multiple levels of lumbar spine degenerative change are seen, which are worst inferiorly. Moderate levoconvex scoliosis. Dictated by: Darin Burt M.D. on 07/20/2021 at 13:45 Approved by: Darin Burt M.D. on 07/20/2021 at 13:52
== END ==
PROVIDERS: Family Provider Internal Medicine Hematology & Oncology; PCP Family Medicine; Referring Provider Physical Medicine & Rehabilitation Pain Medicine; Visit Provider Physical Medicine & Rehabilitation Pain Medicine
DX: M47.816 Spondylosis without myelopathy or radiculopathy, lumbar region (principal); M47.817 Spondylosis without myelopathy or radiculopathy, lumbosacral region; M47.814 Spondylosis without myelopathy or radiculopathy, thoracic region; M41.86 Other forms of scoliosis, lumbar region; M54.50 Low back pain, unspecified
CPT/HCPCS: 72148

== ENCOUNTER → 2021-10-14 08:09 | Outpatient (CLI) | payer MEDICARE, OTHER, SELFPAY ==
[2021-10-14 19:19] LABS: Hematocrit 40.2 % (36-46); Hemoglobin 13.8 g/dL (12.0-16.0); Mean Corpuscular HGB Conc 34.3 % (30-36); Mean Corpuscular Hemoglobin 29.5 PG (26-34); Mean Corpuscular Volume 86.1 fL (80-100); Platelet Count 103 X10^3/uL (150-400); Red Blood Cell Count 4.67 X10^6/uL (4.0-5.2); Red Cell Distribution Width 14.5 % (11.6-14.8); White Blood Cell Count 12.1 X10^3/uL (4.5-11.0)
[2021-10-14 19:24] LABS: Add Manual Diff / Slide Review YES
[2021-10-14 19:28] LABS: Alanine Aminotransferase 13 IU/L (<35); Albumin 4.3 g/dL (3.5-5.0); Albumin Globulin Ratio 1.8 (1.0-2.8); Alkaline Phosphatase 42 U/L (38-126); Aspartate Aminotransferase 24 IU/L (14-36); BUN Creatinine Ratio 22.2 (6-22); Blood Urea Nitrogen 18 mg/dL (7-17); Calcium 8.7 mg/dL (8.4-10.2); Carbon Dioxide 32 mmol/L (22-32); Chloride 100 mmol/L (98-107); Estimated Glomerular Filt Rate > 60.0 mL/min (>60); Globulin 2.4 g/dL (1.7-4.1); Glucose 89 mg/dL (80-110); HEMOLYSIS < 15 (0-50); Lactate Dehydrogenase 534 U/L (313-618); Potassium 4.1 mmol/L (3.4-5.1); Sodium 138 mmol/L (137-145); Total Protein 6.7 g/dL (6.3-8.2)
[2021-10-14 19:39] LABS: Neutrophils Absolute Manual 2662 /uL (3000-5900); Total Cells Counted 100
[2021-10-14 19:41] LABS: RBC Morphology Normal Morphology; Smudge Cells 1+
[2021-10-14 19:46] LABS: Free T4, Direct Thyroxine 2.04 ng/dL (0.78-2.19)
[2021-10-14 19:59] LABS: Thyroid Stimulating Hormone 0.267 uIU/mL (0.47-4.68)
[2021-10-16 18:35] LABS: Anti Thyroglobulin Antibody <1.0 IU/mL (0.0-0.9)
[2021-10-21 09:03] LABS: Thyroglobulin Level <1.0
== END ==
PROVIDERS: Internal Medicine Endocrinology, Diabetes & Metabolism; Family Provider Internal Medicine Hematology & Oncology; PCP Family Medicine
DX: C91.10 Chronic lymphocytic leukemia of B-cell type not having achieved remission (principal); E03.9 Hypothyroidism, unspecified; C73 Malignant neoplasm of thyroid gland; E83.51 Hypocalcemia; E89.2 Postprocedural hypoparathyroidism
CPT/HCPCS: 80053; 83615; 84432; 84439; 84443; 85007; 85025; 86800

== ENCOUNTER → 2022-03-10 14:21 | Outpatient (CLI) | payer MEDICARE, OTHER, SELFPAY ==
[2022-03-10 20:00] LABS: BUN Creatinine Ratio 36.8 (6-22); Blood Urea Nitrogen 28 mg/dL (7-17); Calcium 8.4 mg/dL (8.4-10.2); Carbon Dioxide 28 mmol/L (22-32); Chloride 103 mmol/L (98-107); Estimated Glomerular Filt Rate > 60 mL/min (>60); Glucose 109 mg/dL (80-110); HEMOLYSIS 16 (0-50); Potassium 4.2 mmol/L (3.4-5.1); Sodium 138 mmol/L (137-145)
[2022-03-10 20:22] LABS: Free T4, Direct Thyroxine 1.48 ng/dL (0.78-2.19)
[2022-03-10 20:36] LABS: Thyroid Stimulating Hormone 0.761 uIU/mL (0.47-4.68)
[2022-03-12 20:12] LABS: Thyroglobulin Antibodies < 1.0 IU/mL (0.0-0.9)
== END ==
PROVIDERS: Family Provider Internal Medicine Hematology & Oncology; PCP Family Medicine; Visit Provider Internal Medicine Endocrinology, Diabetes & Metabolism
DX: E03.9 Hypothyroidism, unspecified (principal); C73 Malignant neoplasm of thyroid gland; E83.51 Hypocalcemia; E89.0 Postprocedural hypothyroidism; E89.2 Postprocedural hypoparathyroidism; Y84.2 Radiological procedure and radiotherapy as the cause of abnormal reaction of the patient, or of later complication, without mention of misadventure at the time of the procedure
CPT/HCPCS: 80048; 84432; 84439; 84443; 86800

== ENCOUNTER → 2022-09-16 10:42 | Outpatient (CLI) | payer MEDICARE, OTHER, SELFPAY ==
[2022-09-16 11:59] LABS: Calcium 8.2 mg/dL (8.4-10.2)
[2022-09-17 20:08] LABS: Thyroglobulin Antibodies < 1.0 IU/mL (0.0-0.9)
== END ==
PROVIDERS: Family Provider Internal Medicine Hematology & Oncology; PCP Family Medicine; Referring Provider Internal Medicine Endocrinology, Diabetes & Metabolism; Visit Provider Internal Medicine Endocrinology, Diabetes & Metabolism
DX: E89.2 Postprocedural hypoparathyroidism (principal); C73 Malignant neoplasm of thyroid gland; E89.0 Postprocedural hypothyroidism
CPT/HCPCS: 36415; 82310; 84432; 84443; 86800

== ENCOUNTER → 2023-03-08 11:23 | Outpatient (CLI) | payer MEDICARE, OTHER, SELFPAY ==
[2023-03-08 20:27] LABS: Cholesterol 141 mg/dL (140-199); HDL Cholesterol 31 mg/dL (40-60); LDL Cholesterol Calculated 93 mg/dL (<100); Triglycerides 85 mg/dL (35-150)
== END ==
PROVIDERS: Family Provider Internal Medicine Hematology & Oncology; PCP Family Medicine; Visit Provider Family Medicine
DX: I70.0 Atherosclerosis of aorta (principal)
CPT/HCPCS: 80061

== ENCOUNTER → 2024-03-15 11:27 | Outpatient (CLI) | payer MEDICARE, OTHER, SELFPAY ==
[2024-03-15 18:41] LABS: Hematocrit 37.5 % (36-46); Hemoglobin 12.7 g/dL (12.0-16.0); Mean Corpuscular HGB Conc 33.9 % (30-36); Mean Corpuscular Hemoglobin 28.8 PG (26-34); Mean Corpuscular Volume 85.1 fL (80-100); Platelet Count 119 X10^3/uL (150-400); Red Blood Cell Count 4.41 X10^6/uL (4.0-5.2); Red Cell Distribution Width 15.1 % (11.6-14.8); White Blood Cell Count 16.7 X10^3/uL (4.5-11.0)
[2024-03-15 18:52] LABS: Alanine Aminotransferase 17 IU/L (<35); Albumin Globulin Ratio 1.9 (1.0-2.8); Alkaline Phosphatase 98 U/L (38-126); BUN Creatinine Ratio 34.2 (6-22); Bilirubin Total 0.8 mg/dL (0.2-1.3); Blood Urea Nitrogen 25 mg/dL (7-17); C-Reactive Protein Quant < 0.5 mg/dL (<1.0); Carbon Dioxide 23 mmol/L (22-32); Chloride 104 mmol/L (98-107); Estimated Glomerular Filt Rate > 60 mL/min (>60); Globulin 2.1 g/dL (1.7-4.1); Glucose 93 mg/dL (80-110); Sodium 136 mmol/L (137-145); Total Protein 6.1 g/dL (6.3-8.2)
[2024-03-15 18:53] LABS: Aspartate Aminotransferase 34 IU/L (14-36); HEMOLYSIS 70 (0-50); Potassium 4.3 mmol/L (3.4-5.1)
[2024-03-15 19:16] LABS: TSH w/ Reflex to FT4 0.38 uIU/mL (0.47-4.68)
[2024-03-15 19:35] LABS: Erythrocyte Sedimentation Rate 6 MM/HR (0-20)
[2024-03-15 19:44] LABS: Free T4, Direct Thyroxine 1.37 ng/dL (0.78-2.19)
== END ==
PROVIDERS: Family Provider Internal Medicine Hematology & Oncology; PCP Family Medicine; Visit Provider Physician Assistant Medical
DX: R42 Dizziness and giddiness (principal); E03.9 Hypothyroidism, unspecified
CPT/HCPCS: 80053; 84439; 84443; 85027; 85651; 86140

== ENCOUNTER → 2024-03-28 11:42 | Outpatient (CLI) | payer MEDICARE, OTHER, SELFPAY | PROVIDERS: Family Provider Internal Medicine Hematology & Oncology; PCP Family Medicine; Visit Provider Nurse Practitioner Adult Health | DX: N76.3 Subacute and chronic vulvitis (principal) | CPT/HCPCS: 87798; 87801 ==

== ENCOUNTER → 2024-04-26 09:22 | Outpatient (CLI) | payer MEDICARE, OTHER, SELFPAY ==
--- NOTE | 2024-04-26 09:24 | DI.CT.S_ITS ---
PROCEDURE: CT HEAD/BRAIN WO CON INDICATIONS: headache TECHNIQUE: Noncontrast 4.5 mm thick angled axial sections acquired from the foramen magnum to the vertex, with coronal and sagittal reformats. For radiation dose reduction, the following was used: automated exposure control, adjustment of mA and/or kV according to patient size. COMPARISON: None. FINDINGS: Image quality: Diagnostic. CSF spaces: Basal cisterns are patent. No extra-axial fluid collections. The ventricles are symmetric in size and shape. Brain: No intracranial bleeds or masses. There is cerebral volume loss for age, with resultant ventricular and sulcal prominence. There are periventricular and deep white matter chronic small vessel ischemic changes. There is intracranial internal carotid artery atherosclerosis. Skull and face: Calvarium and visualized facial bones appear intact, without suspicious lesions. Right-sided scleral banding can be seen. Sinuses: Visualized sinuses and mastoids are clear. IMPRESSION: Unremarkable intracranial study for age. To the limits of this noncontrast study, no findings of intracranial masses or mass effect can be seen. Dictated by: Darin Burt M.D. on 04/26/2024 at 9:04 Approved by: Darin Burt M.D. on 04/26/2024 at 9:05
== END ==
PROVIDERS: Family Provider Internal Medicine Hematology & Oncology; PCP Family Medicine; Referring Provider Physician Assistant Medical; Visit Provider Physician Assistant Medical
DX: R51.9 Headache, unspecified (principal); I65.29 Occlusion and stenosis of unspecified carotid artery
CPT/HCPCS: 70450

== ENCOUNTER → 2024-04-26 09:24 | Outpatient (CLI) | payer MEDICARE, OTHER, SELFPAY ==
--- NOTE | 2024-04-26 09:26 | DI.RAD.S_ITS ---
PROCEDURE: XR DEXA AXIAL SKELETON INDICATIONS: recent hip fracture COMPARISON: [facility] [place], [place], XR DEXA AXIAL SKELETON, 07/22/2020, 13:36. FINDINGS: Lumbar Spine: Bone mineral density 1.173 g/cm2, T score 1.4, previously 0.2 Right Hip: Bone mineral density 0.831 g/cm2, T score -0.9, previously -0.1. Left Forearm: Bone mineral density 0.43 g/cm2, T score -2.8 Fracture Risk Calculation (when applicable): 10-year fracture risk of a major osteoporotic fracture 12 percent and of a hip fracture 0.7 percent. (T score greater or equal to -1.0 to: NORMAL) (T score from -1.1 to -2.4: OSTEOPENIA) (T score less than or equal to -2.5: OSTEOPOROSIS) IMPRESSION: 1. Normal bone density of the lumbar spine with 13.2 percent increase in bone density 2. Normal bone density of the right hip, although approaching osteopenia. 3. Osteoporosis of the left forearm. Follow-up guidelines as follows: Osteoporosis: Consider a repeat DEXA and Vertebral Fracture Assessment (VFA) exam in 2 years or sooner if medically necessary, to reassess this patient's status. Osteopenia: Consider a repeat DEXA in 2-3 years to reassess this patient's status, or if there is a new clinical indication. Normal: Consider a repeat DEXA in 5 years or sooner, or if there is a new clinical indication. All treatment decisions require clinical judgment and consideration of individual patient factors, including patient preferences, comorbidities, previous drug use, risk factors not captured in the FRAX model (e.g., frailty, falls, vitamin D deficiency, increased bone turnover, interval significant decline in bone density ) and possible under- or over-estimation of fracture risk by FRAX. In addition, the NOF Guide recommends that FDA-approved medical therapies be considered in postmenopausal women and men age >= 50 years with a: * Hip or vertebral (clinical or morphometric) fracture * T-score of <=-2.5 at the spine or hip * Ten-year fracture probability by FRAX of >= 3% for hip fracture or >=20% for major osteoporotic fracture. People with diagnosed cases of osteoporosis or at high risk for fracture should have regular bone mineral density tests. For patients eligible for Medicare, routine testing is allowed once every 2 years. The testing frequency can be increased to one year for patients who have rapidly progressing disease, those who are receiving or discontinuing medical therapy to restore bone mass, or have additional risk factors. Dictated by: Chip Lerma M.D. on 04/26/2024 at 14:02 Approved by: Chip Lerma M.D. on 04/26/2024 at 14:08
== END ==
PROVIDERS: Family Provider Internal Medicine Hematology & Oncology; PCP Family Medicine; Referring Provider Family Medicine; Visit Provider Family Medicine
DX: I65.29 Occlusion and stenosis of unspecified carotid artery (principal); R51.9 Headache, unspecified; M81.0 Age-related osteoporosis without current pathological fracture; Z78.0 Asymptomatic menopausal state; S72.009A Fracture of unspecified part of neck of unspecified femur, initial encounter for closed fracture
CPT/HCPCS: 70450; 77080; 77081

== ENCOUNTER → 2024-12-28 10:25 | Outpatient (CLI) | payer MEDICARE, OTHER, SELFPAY ==
[2024-12-28 11:58] LABS: Thyroid Stimulating Hormone 0.023 uIU/mL (0.47-4.68)
[2024-12-30 16:09] LABS: Thyroglobulin Antibodies < 1.0 IU/mL (0.0-0.9)
[2024-12-31 05:09] LABS: Calcium 8.8 mg/dL (8.7-10.3); Parathyroid Hormone, Intact 23 pg/mL (15-65)
== END ==
PROVIDERS: Family Provider Internal Medicine Hematology & Oncology; PCP Family Medicine; Referring Provider Internal Medicine Endocrinology, Diabetes & Metabolism; Visit Provider Internal Medicine Endocrinology, Diabetes & Metabolism
DX: E89.0 Postprocedural hypothyroidism (principal); E89.2 Postprocedural hypoparathyroidism; Z85.850 Personal history of malignant neoplasm of thyroid
CPT/HCPCS: 36415; 82310; 83970; 84432; 84436; 84443; 84481; 86800